=== PATIENT | male | born 1960 | race Caucasian/White ===

== ENCOUNTER → 2023-06-17 10:47 | Outpatient (REF) | payer BC, SELFPAY | LOC: MRI 3T 10:47 | PROVIDERS: ATTENDING PHYSICIAN Surgery | DX: R97.20 Elevated prostate specific antigen [PSA] (principal) | CPT/HCPCS: 72197; A9575 ==

== ENCOUNTER 2023-10-14 09:07 | Outpatient (RCR) | payer BC, SELFPAY | END 2023-10-14 23:59 | disposition home or self-care (01) | LOC: RPT 09:07 | PROVIDERS: ATTENDING PHYSICIAN Specialist; FAMILY PHYSICIAN Internal Medicine | DX: C61 Malignant neoplasm of prostate (principal); Z73.6 Limitation of activities due to disability | CPT/HCPCS: 97163; 97530 ==

== ENCOUNTER 2023-10-25 06:13 | Inpatient (IN) | payer BC, SELFPAY ==
[2023-10-19 09:19] VITALS: BMI 35.2
[2023-10-19 10:15] LABS: Hematocrit 45.4 % (39.0-52.0); Hemoglobin 16.3 g/dL (13.0-18.0); Mean Corp Hgb Conc. 35.9 g/dL (33.0-37.0); Mean Corpuscular Volume 86.3 fL (80.0-94.0); Mean Platelet Volume 11.3 fL (7.4-10.4); Platelet Count 238 10^3/uL (130-400); Red Blood Cell Count 5.26 10^6/uL (4.70-6.10); White Blood Cell Count 8.3 10^3/uL (4.8-10.8)
[2023-10-19 10:17] LABS: Urine Albumin Negative (Neg - Trace); Urine Bilirubin Negative (Negative); Urine Character Clear (Clear); Urine Color Yellow; Urine Glucose 3+ (Negative); Urine Ketone Negative (Negative); Urine Leukocyte Negative (Negative); Urine Nitrite Negative (Negative); Urine Occult Blood Negative (Negative); Urine Urobilinogen Negative (Neg - 1+)
[2023-10-19 10:25] LABS: APTT 30.5 Sec (23.4-35.0)
[2023-10-19 11:36] LABS: INR 1.05; PT 13.5 Sec (11.4-14.6)
[2023-10-19 12:31] LABS: Blood Urea Nitrogen 23 mg/dl (9-20); Calcium 9.5 mg/dl (8.4-10.2); Carbon Dioxide 21 mmol/L (22-30); Chloride 106 mmol/L (98-107); Estimated Creatinine Clearance 110 ml/min; Glucose 130 mg/dl (70-99); Potassium 4.2 mmol/L (3.5-5.1); Sodium 140 mmol/L (135-145); eGFR > 60.00
[2023-10-25] VITALS (16 sets, daily range): BP systolic 118–175; BP diastolic 56–98; BMI 35.2
[2023-10-25 06:44] LABS: Glucose - Point of Care 143 mg/dl (70-99)
[2023-10-25] MEDS: NORMOSOL-R 1000 IV ×3 (06:49→17:40)
[2023-10-25] MEDS: NEBCIN 480 MG/100 ML ENEMA 1 BOTTLE RECTAL (06:50)
[2023-10-25 08:48] LABS: Glucose - Point of Care 189 mg/dl (70-99)
--- NOTE | 2023-10-25 09:58 | W.IMMPOSTOP ---
Surgical Immed Post Op Note
-
Primary Surgeon: Rashmi
Assisting Surgeon: Juan Ramon
Pre-op Diagnosis: Prostate cancer
Post-op Diagnosis: Same
Procedure Performed: Radical perineal prostatectomy, bladder neck reconstruction
Anesthesia Type: GET
Specimen / Cultures: prostate gland, bladder neck and urethral margin frozen sections
Estimated Blood Loss: 150 ml
Complications: None
[2023-10-25 10:21] LABS: Hemoglobin 14.6 g/dL (13.0-18.0)
[2023-10-25] MEDS: TORADOL 15 MG IV ×3 (10:28→21:30)
[2023-10-25] MEDS: DETROL LA 4 MG PO (10:45)
[2023-10-25] MEDS: NOVOLOG FLEXPEN-MODERATE RESISTANCE SC (10:53)
[2023-10-25 10:54] LABS: Glucose - Point of Care 193 mg/dl (70-99)
[2023-10-25 11:02] LABS: Blood Urea Nitrogen 17 mg/dl (9-20); Calcium 8.4 mg/dl (8.4-10.2); Carbon Dioxide 20 mmol/L (22-30); Chloride 106 mmol/L (98-107); Estimated Creatinine Clearance 123 ml/min; Glucose 193 mg/dl (70-99); Potassium 4.4 mmol/L (3.5-5.1); Sodium 137 mmol/L (135-145); eGFR > 60.00
--- NOTE | 2023-10-25 11:43 | PTCARENOTE ---
Received patient from PACU via bed around 1130 in stable condition. Urinary catheter draining clear yellow urine. ABD to pernineal area C/D/I. Patient denies pain at this time. Patient oriented to room. Call rodriguez in reach.
[2023-10-25] MEDS: NEURONTIN 200 MG PO ×3 (13:11→21:38)
[2023-10-25] MEDS: COLACE 100 MG PO ×2 (13:11→16:37)
[2023-10-25] MEDS: ANESTHETIC LOZENGE 1 LOZENGE PO ×2 (16:36→23:06)
[2023-10-25] MEDS: NOVOLOG FLEXPEN-MODERATE RESISTANCE 5 UNITS SC (16:39)
[2023-10-25 16:40] LABS: Glucose - Point of Care 271 mg/dl (70-99)
[2023-10-25] MEDS: ZYLOPRIM 100 MG PO (17:37)
[2023-10-25] MEDS: ZESTRIL 30 MG PO (17:37)
[2023-10-25] MEDS: PROCARDIA XL (EXTENDED RELEASE) 60 MG PO (17:38)
[2023-10-25] MEDS: TENORMIN 25 MG PO (17:38)
[2023-10-25 21:24] LABS: Glucose - Point of Care 259 mg/dl (70-99)
[2023-10-25] MEDS: POLYSPORIN/DOUBLE ANTIBIOTIC 1 APPLIC TOPICAL (21:29)
[2023-10-25] MEDS: LUVOX 25 MG PO (21:30)
[2023-10-25] MEDS: VALIUM INJECTION 5 MG IV (23:11)
[2023-10-26] MEDS: MORPHINE SULFATE 4 MG IV ×2 (02:44→21:18)
[2023-10-26] MEDS: NORMOSOL-R 1000 IV ×2 (03:00→13:36)
[2023-10-26 03:14] VITALS: BP 107/61
[2023-10-26] MEDS: TORADOL 15 MG IV ×3 (04:29→16:57)
[2023-10-26 07:00] VITALS: BP 135/78
[2023-10-26 07:08] LABS: Glucose - Point of Care 157 mg/dl (70-99)
[2023-10-26] MEDS: JARDIANCE 25 MG PO (08:01)
[2023-10-26] MEDS: AMARYL 1 MG PO (08:01)
[2023-10-26] MEDS: GLUCOPHAGE XR EXTENDED RELEASE 750 MG PO (08:01)
[2023-10-26] MEDS: NEURONTIN 200 MG PO ×4 (08:01→21:08)
[2023-10-26] MEDS: COLACE 100 MG PO ×3 (08:01→16:57)
[2023-10-26] MEDS: LIPITOR 40 MG PO (08:01)
[2023-10-26] MEDS: NOVOLOG FLEXPEN-MODERATE RESISTANCE 1 UNITS SC ×3 (08:01→16:57)
[2023-10-26] MEDS: POLYSPORIN/DOUBLE ANTIBIOTIC 1 APPLIC TOPICAL ×2 (08:03→21:09)
[2023-10-26 08:04] LABS: Hematocrit 39.3 % (39.0-52.0); Hemoglobin 14.3 g/dL (13.0-18.0); Mean Corp Hgb Conc. 36.4 g/dL (33.0-37.0); Mean Corpuscular Hgb 31.4 pg (27.0-31.0); Mean Corpuscular Volume 86.4 fL (80.0-94.0); Mean Platelet Volume 10.7 fL (7.4-10.4); Platelet Count 209 10^3/uL (130-400); Red Blood Cell Count 4.55 10^6/uL (4.70-6.10); Red Cell Dist. Width 11.8 % (11.5-14.5); White Blood Cell Count 12.6 10^3/uL (4.8-10.8)
[2023-10-26] MEDS: NORMOSOL-R IV (08:17)
[2023-10-26 08:30] LABS: Blood Urea Nitrogen 24 mg/dl (9-20); Calcium 8.6 mg/dl (8.4-10.2); Carbon Dioxide 25 mmol/L (22-30); Chloride 102 mmol/L (98-107); Estimated Creatinine Clearance 110 ml/min; Glucose 145 mg/dl (70-99); Potassium 4.6 mmol/L (3.5-5.1); Sodium 134 mmol/L (135-145); eGFR > 60.00
--- NOTE | 2023-10-26 08:35 | W.PN.SURGUPD ---
Addendum entered and electronically signed by Nahid Caraballo MD 11/04/23 11:10:
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
Original Note:
Surgical Update
Surgical Update
Stable 1 day s/p radical perineal prostatectomy
Doing well
Labs good
Dressing dry
Rodriguez draining clear urine
Tolerating diet
---
Plan: Increase activity
Anticipate discharge tomorrow
[2023-10-26 08:53] LABS: Glycohemoglobin (HgbA1c) 7.8 % (4.0-5.6)
[2023-10-26] MEDS: PERCOCET 5/325 1 TABLET PO (08:58)
[2023-10-26 09:30] VITALS: BMI 34.4
[2023-10-26 11:45] VITALS: BP 127/78
[2023-10-26 12:11] LABS: Glucose - Point of Care 168 mg/dl (70-99)
--- NOTE | 2023-10-26 12:41 | CM ---
Initial assessment completed with patient who lives with his disabled in a 3 story home with B/B on 2nd and 1/2 bath on , 1 step to enter. There is W/CH, RW, rollator, SC, commode and stair glide in the home which uses. Patient only
uses the stair glide. No in-home services. 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 [employer] patient was independent and drove. Has a history of depression and anxiety but no psychiatric hospitalizations. [facility] [place] and PCP is Dr. Howard
[facility] Anticipate discharge to home with [facility] services for wound and lezama care. Patient preference is . Will send referral.
[2023-10-26] MEDS: ANESTHETIC LOZENGE 1 LOZENGE PO (13:10)
[2023-10-26 15:00] VITALS: BP 136/62
[2023-10-26 16:17] LABS: Glucose - Point of Care 161 mg/dl (70-99)
[2023-10-26] MEDS: TENORMIN 25 MG PO (17:00)
[2023-10-26] MEDS: ZYLOPRIM 100 MG PO (17:00)
[2023-10-26] MEDS: PROCARDIA XL (EXTENDED RELEASE) 60 MG PO (17:00)
[2023-10-26] MEDS: ZESTRIL 30 MG PO (17:00)
[2023-10-26 20:26] VITALS: BP 140/80
[2023-10-26] MEDS: LUVOX 25 MG PO (21:08)
[2023-10-26 21:39] LABS: Glucose - Point of Care 146 mg/dl (70-99)
[2023-10-26 23:22] VITALS: BP 111/69
[2023-10-27] MEDS: MORPHINE SULFATE 4 MG IV ×2 (00:39→05:41)
[2023-10-27] MEDS: VALIUM INJECTION 5 MG IV (03:01)
[2023-10-27 04:16] VITALS: BP 134/77
[2023-10-27] MEDS: ANESTHETIC LOZENGE 1 LOZENGE PO (05:41)
[2023-10-27 07:00] VITALS: BP 129/79
[2023-10-27 07:07] LABS: Glucose - Point of Care 112 mg/dl (70-99)
[2023-10-27] MEDS: NOVOLOG FLEXPEN-MODERATE RESISTANCE SC (07:12)
[2023-10-27] MEDS: JARDIANCE 25 MG PO (07:41)
[2023-10-27] MEDS: COLACE 100 MG PO ×2 (07:41→12:08)
[2023-10-27] MEDS: AMARYL 1 MG PO (07:41)
[2023-10-27] MEDS: NEURONTIN 200 MG PO ×2 (07:41→12:08)
[2023-10-27] MEDS: LIPITOR 40 MG PO (07:41)
[2023-10-27] MEDS: GLUCOPHAGE XR EXTENDED RELEASE 750 MG PO (07:41)
[2023-10-27] MEDS: POLYSPORIN/DOUBLE ANTIBIOTIC 1 APPLIC TOPICAL (07:44)
[2023-10-27 09:47] VITALS: BMI 34.2
--- NOTE | 2023-10-27 10:24 | W.DS.TRANS ---
DC Summary - Guide Escort
-
Discharge Instructions:
Instructions:
Stand-Alone Forms:
Changes to Home Medications: No
Discharge Medications:
DC Medications w/original date entered in [facility]
allopurinol 100 mg tablet 100 mg PO QPM gout 06/05/19
aspirin 81 mg tablet,delayed release (Adult Aspirin Regimen) 81 mg PO HS Blood Clot Prevention/Tx 06/05/19
atenolol 25 mg tablet 25 mg PO QPM Blood Pressure 06/05/19
fluvoxamine 25 mg tablet 25 mg PO HS Mental Health/Anxiety 06/05/19
gabapentin 100 mg capsule 200 mg PO QID pain 06/05/19
indomethacin 50 mg capsule 50 mg PO PRN PRN gout 06/05/19
lisinopril 30 mg tablet 30 mg PO QPM Blood Pressure 06/05/19
metformin 750 mg tablet,extended release 24 hr 750 mg PO DAILY ##0 06/05/19
nifedipine 60 mg tablet,extended release 24 hr 60 mg PO QPM Blood Pressure 06/05/19
nitroglycerin 0.4 mg sublingual tablet 0.4 mg sublingual [id number] PRN chest pain 06/05/19
atorvastatin 40 mg tablet 40 mg PO DAILY #90 tabs 06/06/19
cholecalciferol (vitamin D3) 25 mcg (1,000 unit) capsule (Vitamin D3) 50 mcg PO DAILY Supplement 10/20/23
diphenhydramine HCl 25 mg capsule (Benadryl) 25 - 50 mg PO BIDPRN PRN Allergic Rhinitis 10/20/23
empagliflozin 25 mg tablet (Jardiance) 25 mg PO DAILY Diabetes 10/20/23
gabapentin 100 mg capsule 200 mg PO BID PRN Pain 10/20/23
glimepiride 1 mg tablet 1 mg PO DAILY Diabetes 10/20/23
ibuprofen 200 mg tablet 200 mg PO Q6H PRN Pain 10/20/23
Home Medication Changes
Pending Results: No
--- NOTE | 2023-10-27 10:42 | CM ---
Patient seen at bedside, physician put order for discharge in and [facility] liaison at bedside. Patient states that he has a ride home and has no other needs at this time. CM will continue to follow for discharge planning needs.
Plan; home with [facility] to follow
--- NOTE | 2023-10-27 10:47 | VNURNOTE ---
Home Health Liaison met with patient at 1030 to discuss [facility] nurse visits, schedule and homebound status. Patient is agreeable and understands that visits at home will be 2-3 x per week to assess and teach medical management and catheter care.
[facility] brochure provided with contact information. Patient is aware that [facility] will contact him for start of care in 1-2 days after discharge from .
[facility] referral updated in [facility].
[2023-10-27 11:52] LABS: Glucose - Point of Care 168 mg/dl (70-99)
[2023-10-27 11:55] VITALS: BP 144/81
[2023-10-27] MEDS: NOVOLOG FLEXPEN-MODERATE RESISTANCE 1 UNITS SC (12:08)
--- NOTE | 2023-11-04 07:44 | PN.CDI ---
CDI
- -
CDI:
Physician Documentation Request
Admit Date: [f_Reg Admit Date Time]
Dear Dr. Nahid Caraballo
Please review the following and provide your response in the progress notes.
Clinical Indicators:
The diagnosis of Right and Left seminal vesicles involved by carcinoma was included in the signed (path report, CT, MRI, echo, etc).
Additional clinical indicators in the chart include:
� Prostatic acinar adenocarcinoma, Liberal score 7 (3+4), grade group 2, involving approximately 13% of prostate gland.
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
� Right and left seminal vesicles involved by carcinoma.
� Negative surgical resection margins.
� See tumor synoptic summary.
Please indicate in your progress notes if you are in agreement that the above diagnosis is valid for this patient:
____ Carcinoma of seminal vesicles is a valid diagnosis (Please include it in your progress notes)
____ Carcinoma of seminal vesicless is not a valid diagnosis for this patient
____ - Carcinoma of seminal vesiclesis not yet confirmed but remains a suspected condition
____ - Other
____ - Unable to determine
Use of terms such as suspected, likely, concern for, or probable are acceptable for a diagnosis that is being evaluated, monitored or treated as if it exists and can be coded in the inpatient setting, when documented at the time of discharge.
Thank you,
[f_Mis Current User]
[employer] [facility]
Please use your independent medical judgment in providing your response.
== END 2023-10-27 14:20 | disposition home health service (06) | DRG 707 ==
LOC: 2 SOUTH 06:13
PROVIDERS: ADMITTING PHYSICIAN Specialist; FAMILY PHYSICIAN Internal Medicine
PROC: 0VTQ0ZZ Resection of Bilateral Vas Deferens, Open Approach (ICD-10-PCS; 2023-10-25)
PROC: 0TBC0ZX Excision of Bladder Neck, Open Approach, Diagnostic (ICD-10-PCS; 2023-10-25)
PROC: 0VT30ZZ Resection of Bilateral Seminal Vesicles, Open Approach (ICD-10-PCS; 2023-10-25)
PROC: 0TBD0ZX Excision of Urethra, Open Approach, Diagnostic (ICD-10-PCS; 2023-10-25)
PROC: 0VT00ZZ Resection of Prostate, Open Approach (ICD-10-PCS; 2023-10-25)
DX: C61 Malignant neoplasm of prostate (principal); C79.82 Secondary malignant neoplasm of genital organs; N40.1 Benign prostatic hyperplasia with lower urinary tract symptoms; E11.9 Type 2 diabetes mellitus without complications; M10.9 Gout, unspecified; I10 Essential (primary) hypertension; G47.33 Obstructive sleep apnea (adult) (pediatric); R35.1 Nocturia; R39.198 Other difficulties with micturition; R39.11 Hesitancy of micturition; F17.210 Nicotine dependence, cigarettes, uncomplicated; F17.290 Nicotine dependence, other tobacco product, uncomplicated; Z88.0 Allergy status to penicillin; Z79.82 Long term (current) use of aspirin; Z79.84 Long term (current) use of oral hypoglycemic drugs; Z95.5 Presence of coronary angioplasty implant and graft
CPT/HCPCS: 88305; 88309; 88332; 36415; 80048; 81003; 82962; 83036; 85014; 85018; 85027; 85610; 85730; 86850; 86900; 86901; 88331; 93005; A4648

== ENCOUNTER 2023-12-07 11:44 | Outpatient (RCR) | payer BC, SELFPAY | END 2023-12-07 23:59 | disposition home or self-care (01) | LOC: RPT 11:44 | PROVIDERS: ATTENDING PHYSICIAN Specialist; FAMILY PHYSICIAN Internal Medicine | DX: C61 Malignant neoplasm of prostate (principal); Z73.6 Limitation of activities due to disability | CPT/HCPCS: 97110; 97164; 97530 ==

== ENCOUNTER 2024-01-10 13:49 | Outpatient (RCR) | payer BC, SELFPAY | END 2024-01-10 23:59 | disposition home or self-care (01) | LOC: RPT 13:49 | PROVIDERS: ATTENDING PHYSICIAN Specialist; FAMILY PHYSICIAN Internal Medicine | DX: C61 Malignant neoplasm of prostate (principal) | CPT/HCPCS: 97110; 97112; 97530 ==

== ENCOUNTER 2024-02-01 10:48 | Outpatient (RCR) | payer BC, SELFPAY | END 2024-02-01 23:59 | disposition home or self-care (01) | LOC: RPT 10:48 | PROVIDERS: ATTENDING PHYSICIAN Specialist; FAMILY PHYSICIAN Internal Medicine | DX: C61 Malignant neoplasm of prostate (principal); Z73.6 Limitation of activities due to disability; R32 Unspecified urinary incontinence; Z98.890 Other specified postprocedural states; Z90.79 Acquired absence of other genital organ(s) | CPT/HCPCS: 97110; 97112; 97530 ==